=== PATIENT | male | born 1985 | race Caucasian/White ===

== ENCOUNTER 2022-01-28 18:44 | Emergency (ER) | payer OTHER, SELFPAY ==
[2022-01-28] MEDS ORDERED: Lidocaine 1% w/Epinephrine 1:100K 20 ML VIAL ONE ×2 (21:28→21:29)
[2022-01-28] MEDS ORDERED: Boostrix 0.5 ML (Tdap) VIAL (>/=7 yrs of age) ONE (22:02)
[2022-01-28] MEDS ORDERED: Bacitracin 1 PK ONE (22:02)
[2022-01-28] MEDS ORDERED: Cephalexin 500 MG CAP ONE (22:07)
== END 2022-01-28 22:20 | disposition home or self-care (01) ==
LOC: MADERS 18:44
DX: S81.811A Laceration without foreign body, right lower leg, initial encounter (principal); W55.22XA Struck by cow, initial encounter; Z23 Encounter for immunization
CPT/HCPCS: 12002; 90471; 90715